=== PATIENT | female | born 1985 | race Caucasian/White ===

== ENCOUNTER 2016-12-26 11:18 | Observation (INO) | payer SELFPAY ==
[2016-12-26] VITALS (9 sets, daily range): BP systolic 84–118; BP diastolic 49–74; PULSE 72–91; RESP 14–18; TEMP 97.9–98.7; O2SAT 96–100
[~2016-12-26] VITALS: Ht 172.7 cm; Wt 65.0 kg
[~2016-12-26 11:18] MED LIST: PROM25TA5 PO; ZOFR4TAB3 SL
--- NOTE | 2016-12-26 11:32 | PD ---
Physical Exam Time Seen by Provider: 11:27 Narrative Patient presents to the emergency department for evaluation of vaginal bleeding and cramping for 2 weeks. LMP 5 months ago. Positive test 2 months ago. States she was approximately 8 weeks when the bleeding started. Going through 5-6 feminine pads per day. States she has had 2-3 syncopal episodes. VSS. Awaiting bed placement. Data Data Last Documented VS Vital Signs Date Time Temp Pulse Resp B/P Pulse Ox O2 Delivery O2 Flow Rate FiO2 12/26/16 11:20 98.7 91 16 118/56 100 Room Air MDM Supervised Visit with CARIDAD: Zulma Cruz Dec 26, 2016 11:31
[2016-12-26] MEDS ORDERED: METH40TA PO (11:41)
[2016-12-26] MEDS ORDERED: PROPOFOL 200 MG/20 ML AMP IV ONE (12:00)
[2016-12-26] MEDS ORDERED: LACTATED RINGER'S 1000 ML INJ 1,000 ML IV ONE (12:00)
[2016-12-26] MEDS ORDERED: SODIUM CHLOR 0.9% 1000 ML INJ 1,000 ML IV ONE (12:07)
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
[2016-12-26] MEDS ORDERED: SODIUM CHLORIDE 0.9% FLUSH 10 ML FLUSH IVF PRN (12:15)
[2016-12-26] MEDS ORDERED: ONDANSETRON HCL 4 MG/2 ML VIAL IVP ONE (12:15)
[2016-12-26 13:05] LABS: AUTOMATED NEUTROPHIL # 4.5 TH/MM3 (1.8-7.7); BASOPHIL % 0.4 % (0.0-2.0); EOSINOPHIL # 0.2 TH/MM3 (0-0.4); EOSINOPHIL % 2.8 % (0.0-4.0); HEMATOCRIT 37.6 % (35.0-46.0); HEMO FLAGS DIFF FINAL; LYMPH % 24.7 % (9.0-44.0); LYMPHOCYTE # 1.7 TH/MM3 (1.0-4.8); MEAN CELL VOLUME 84.5 FL (80.0-100.0); MEAN CORPUSCULAR HGB CONC 33.1 % (32.0-36.0); MONO % 5.8 % (0.0-8.0); NEUT % 66.3 % (16.0-70.0); PLATELET COUNT 251 TH/MM3 (150-450); RED BLOOD COUNT 4.45 MIL/MM3 (4.00-5.30); RED CELL DISTRIBUTION WIDTH 13.8 % (11.6-17.2); WHITE BLOOD COUNT 6.8 TH/MM3 (4.0-11.0)
[2016-12-26 13:08] LABS: BLOOD, URINE MOD (NEG); COMMENT (UR) CULT NOT INDICATED; CULTURE IF INDICATED CULT NOT INDICATED; GLUCOSE,URINE NEG (NEG); KETONE, URINE NEG (NEG); MUCUS URINE MANY /lpf (OCC); NITRITE,URINE NEG (NEG); SQUAMOUS EPITHELIAL CELL URINE 11 /hpf (0-5); URINE COLOR YELLOW (YELLW/STRAW)
[2016-12-26 13:19] LABS: MAGNESIUM 2.2 MG/DL (1.5-2.5); POTASSIUM 3.8 MEQ/L (3.5-5.1)
[2016-12-26 14:14] LABS: AMPHETAMINE, URINE POS (NEG); BARBITURATES, URINE NEG (NEG); COCAINE, URINE NEG (NEG)
--- NOTE | 2016-12-26 16:09 | RADRPT ---
EXAM DATE/TIME: 12/26/2016 14:50 [facility] COMPARISON: No previous studies available for comparison. INDICATIONS : Pelvic pain and vaginal bleeding following spontaneous . LAB(S): Beta-hC MEDICAL HISTORY : Pelvic pain. Vaginal bleeding. Previous ectopic . SURGICAL HISTORY : None. ENCOUNTER: Initial ACUITY: 2 weeks PAIN SCORE: 9/10 LOCATION: Bilateral pelvis MEASUREMENTS: UTERUS: 8.7 x 5.4 x 6.2 cm ENDOMETRIAL STRIPE: 15 mm RIGHT OVARY: 3.5 x 1.2 x 2.5 cm LEFT OVARY: 4.0 x 1.8 x 2.2 cm FINDINGS: UTERUS: Uterus is retroverted and contains a roughly ovoid shaped fluid collection in the endometrial cavity measuring 2.1 x 2.7 x 2.4 cm. There are a few internal echoes. No gestational sac is visualized. Ther e is a hypoechoic anechoic structure in the lower uterine segment measuring up to 2.2 cm. No concerni ng uterine mass is visualized. RIGHT OVARY: Ovary contains no mass or significant cystic lesion. There is a small echogenic area measuring 6 mm. LEFT OVARY: Ovary contains no mass or significant cystic lesion. There is a small echogenic area measuring 4 mm. MISCELLANEOUS: No free fluid. CONCLUSION: Irregular shaped fluid collection within the endometrial cavity that does not clearly represent a nor mal gestational sac and no embryo or yolk sac is identified. There is also a complex fluid collection in the lower uterine segment. These findings indicate of unknown location. Based on the cl inical history the patient may have already had loss. Suggest followup imaging and followup beta-hCG values to assess for change. Aman Renee MD on December 26, 2016 at 16:03 Board Certified Radiologist. This report was verified electronically.
--- NOTE | 2016-12-26 16:47 | PD ---
Data Data Last Documented VS Vital Signs Date Time Temp Pulse Resp B/P Pulse Ox O2 Delivery O2 Flow Rate FiO2 12/26/16 15:45 74 18 99/74 97 12/26/16 13:22 Room Air 12/26/16 11:20 98.7 Orders Urinalysis - C+S If Indicated (12/26/16 12:06) Ed Urine Pregnancytest Poc (12/26/16 12:06) Electrocardiogram (12/26/16 12:07) Basic Metabolic Panel (Bmp) (12/26/16 12:07) Complete Blood Count With Diff (12/26/16 12:07) Magnesium (Mg) (12/26/16 12:07) Ecg Monitoring (12/26/16 12:07) Iv Access Insert/Monitor (12/26/16 12:07) Oximetry (12/26/16 12:07) Ondansetron Inj (Zofran Inj) (12/26/16 12:15) Sodium Chloride 0.9% Flush (Ns Flush) (12/26/16 12:15) Sodium Chlor 0.9% 1000 Ml Inj (Ns 1000 M (12/26/16 12:07) Beta Hcg (Quant/Titer) (12/26/16 12:07) Type And Screen (12/26/16 12:07) Orthostatic Vital Signs (12/26/16 12:12) Drug Screen, Random Urine (12/26/16 12:13) Us Pelvis (Ques Pr/Ect)W Trans (12/26/16 ) Labs Laboratory Tests Test 12/26/16 12/26/16 12:34 12:39 Urine Color YELLOW Urine Turbidity HAZY Urine pH 6.0 Urine Specific [place] 1.031 Urine Protein TRACE mg/dL Urine Glucose (UA) NEG mg/dL Urine Ketones NEG mg/dL Urine Occult Blood MOD Urine Nitrite NEG Urine Bilirubin NEG Urine Urobilinogen LESS THAN 2.0 MG/DL Urine Leukocyte Esterase SMALL Urine RBC 3 /hpf Urine WBC 5 /hpf Urine Squamous Epithelial 11 /hpf Cells Urine Mucus MANY /lpf Microscopic Urinalysis Comment CULT NOT INDICATED Urine Opiates Screen POS Urine Barbiturates Screen NEG Urine Amphetamines Screen POS Urine Benzodiazepines Screen POS Urine Cocaine Screen NEG Urine Cannabinoids Screen POS White Blood Count 6.8 TH/MM3 Red Blood Count 4.45 MIL/MM3 Hemoglobin 12.4 GM/DL Hematocrit 37.6 % Mean Corpuscular Volume 84.5 FL Mean Corpuscular Hemoglobin 28.0 PG Mean Corpuscular Hemoglobin 33.1 % Concent Red Cell Distribution Width 13.8 % Platelet Count 251 TH/MM3 Mean Platelet Volume 7.9 FL Neutrophils (%) (Auto) 66.3 % Lymphocytes (%) (Auto) 24.7 % Monocytes (%) (Auto) 5.8 % Eosinophils (%) (Auto) 2.8 % Basophils (%) (Auto) 0.4 % Neutrophils # (Auto) 4.5 TH/MM3 Lymphocytes # (Auto) 1.7 TH/MM3 Monocytes # (Auto) 0.4 TH/MM3 Eosinophils # (Auto) 0.2 TH/MM3 Basophils # (Auto) 0.0 TH/MM3 CBC Comment DIFF FINAL Differential Comment Sodium Level 142 MEQ/L Potassium Level 3.8 MEQ/L Chloride Level 109 MEQ/L Carbon Dioxide Level 26.0 MEQ/L Anion Gap 7 MEQ/L Blood Urea Nitrogen 6 MG/DL Creatinine 0.62 MG/DL Estimat Glomerular Filtration 111 ML/MIN Rate Random Glucose 94 MG/DL Calcium Level 8.6 MG/DL Magnesium Level 2.2 MG/DL Human Chorionic Gonadotropin, 367 MIU/ML Quant Blood Type O POSITIVE Antibody Screen NEGATIVE Blood Bank Comment MDM Supervised Visit with CARIDAD: Yes Narrative Course The history, exam, and medical decision-making in the associated midlevel provider note were completed with my assistance. I reviewed and agree with the findings presented. I attest that I had a [id number] encounter with the patient on the same day, and personally performed and documented my assessment and findings in the medical record. *My assessment and Findings: This is a 31-year-old female who presents to the emergency department with vaginal bleeding in the setting of early . HCG is 300. Ultrasound demonstrates retained products. Patient likely has an incomplete miscarriage. We Spoke to SENIOR ACCOUNTING CLERK who will consult on the patient and likely do a D&C. Beulah Arthur MD Dec 26, 2016 16:46
--- NOTE | 2016-12-26 18:21 | HHI.HP ---
HPI Chief Complaint Bleeding and cramping Date Seen: Dec 26, 2016 Travel History International Travel<30 Days: No Contact w/Intl Traveler<30Days: No Known Affected Area: No History of Present Illness HPI The patient is a 31-year-old white female A2 in early with increased pain and bleeding. Patient was seen by [facility] old campus in November was diagnosed with a nonviable until she was 4 weeks along and return for another quantitative and possibly a D&C she is return to them in other places each time getting around and told to come back and recheck things and now the pain is gotten worse the bleeding as well. Patient is on methadone her only medications a history of drug use Para: 3 : 6 : 1 History Obstetric History Obstetric History 3 vaginal deliveries 1 and 1 ectopic that needed a laparoscopy Past Surgical History Narrative Surgical A D&C and an history laparoscopy for ectopic Family History Family History: Negative Social History Alcohol Use: Yes Tobacco Use: Yes Substance Abuse: Yes Allergies-Medications (Allergen,Severity, Reaction): Coded Allergies: No Known Allergies (Unverified , 12/26/16) Home Meds Reported Medications Methadone 40 Mg Tab70 Mg PO DAILY Ref 0 12/26/16 Review of Systems General / Constitutional: No: Fever, Weight Gain, Chills, Other Eyes: No: Diploplia, Blurred Vision, Visual changes, Pain, Photophobia HENT: No: Headaches, Vertigo, Lightheadedness Cardiovascular: No: Irregular Rhythm, Chest Pain or Discomfort, Palpitations, Tachycardia, Syncope, Varicosities, Edema, Cyanosis Respiratory: No: Cough, Short of Breath, Other Gastrointestinal: Abdominal Pain, No: Nausea, Vomiting, Diarrhea Genitourinary: Vaginal Bleeding, No: Decreased Urinary Output, Oliguria Musculoskeletal: No: Limited ROM, Weakness, Cramping, Edema, Pain Skin: No Rash, No Itching, No Dryness, No Lumps, No Change in Pigmentation, No Change in Nails, No Alopecia, No Lesions Neurologic: No: Weakness, Dizziness, Syncope, Focal Abnormalities, Coordination Problem, Headache, Slurred Speech, Seizures Psychiatric: No: Depression, Suicidal Ideations, Homicidal Ideation Endocrine: No: Heat Intolerance, Cold Intolerance, Polydipsia, Polyuria, Other Physical Exam Vital Signs Date Time Temp Pulse Resp B/P Pulse Ox O2 Delivery O2 Flow Rate FiO2 12/26/16 15:45 74 18 99/74 97 12/26/16 13:22 72 18 99/64 97 Room Air 12/26/16 12:38 70 16 96/62 12/26/16 12:36 61 18 99/58 12/26/16 12:35 59 18 99/53 12/26/16 12:35 96 Room Air 12/26/16 11:20 98.7 91 16 118/56 100 Room Air Narrative GENERAL: Well-nourished, well-developed patient. SKIN: Warm and dry. HEAD: Normocephalic and atraumatic. EYES: No scleral icterus. No injection or drainage. ENT: No nasal drainage noted. Mucous membranes pink. Airway patent. NECK: Supple, trachea midline. No JVD. CARDIOVASCULAR: Regular rate and rhythm without murmurs, gallops, or rubs. RESPIRATORY: Breath sounds equal bilaterally. No accessory muscle use. BREASTS: Bilateral exam showed no masses , no retractions, no nipple discharge. ABDOMEN/GI: Abdomen soft, -tender, bowel sounds present, no rebound, no guarding GENITOURINARY: External Genitalia: intact and normal in appearance vagina with small amount of blood Cervix: [Closed-] Uterus is retroflexed and slightly enlarged the cervix is up at 12:00 and is 1-2+ tender No adnexal masses or pain EXTREMITIES: No cyanosis or edema. BACK: Nontender without obvious deformity. No CVA tenderness. NEUROLOGICAL: Awake and alert. Motor and sensory grossly within normal limits. Five out of 5 muscle strength in all muscle groups. Normal speech. Data Data Orders Urinalysis - C+S If Indicated (12/26/16 12:06) Ed Urine Pregnancytest Poc (12/26/16 12:06) Electrocardiogram (12/26/16 12:07) Basic Metabolic Panel (Bmp) (12/26/16 12:07) Complete Blood Count With Diff (12/26/16 12:07) Magnesium (Mg) (12/26/16 12:07) Ecg Monitoring (12/26/16 12:07) Iv Access Insert/Monitor (12/26/16 12:07) Oximetry (12/26/16 12:07) Ondansetron Inj (Zofran Inj) (12/26/16 12:15) Sodium Chloride 0.9% Flush (Ns Flush) (12/26/16 12:15) Sodium Chlor 0.9% 1000 Ml Inj (Ns 1000 M (12/26/16 12:07) Beta Hcg (Quant/Titer) (12/26/16 12:07) Type And Screen (12/26/16 12:07) Orthostatic Vital Signs (12/26/16 12:12) Drug Screen, Random Urine (12/26/16 12:13) Us Pelvis (Ques Pr/Ect)W Trans (12/26/16 ) Admit Order (Ed Use Only) (12/26/16 18:02) Labs Laboratory Tests Test 12/26/16 12/26/16 12:34 12:39 Urine Color YELLOW Urine Turbidity HAZY Urine pH 6.0 Urine Specific [place] 1.031 Urine Protein TRACE Urine Glucose (UA) NEG Urine Ketones NEG Urine Occult Blood MOD Urine Nitrite NEG Urine Bilirubin NEG Urine Urobilinogen LESS THAN 2.0 Urine Leukocyte Esterase SMALL Urine RBC 3 Urine WBC 5 Urine Squamous Epithelial 11 Cells Urine Mucus MANY Microscopic Urinalysis Comment CULT NOT INDICATED Urine Opiates Screen POS Urine Barbiturates Screen NEG Urine Amphetamines Screen POS Urine Benzodiazepines Screen POS Urine Cocaine Screen NEG Urine Cannabinoids Screen POS White Blood Count 6.8 Red Blood Count 4.45 Hemoglobin 12.4 Hematocrit 37.6 Mean Corpuscular Volume 84.5 Mean Corpuscular Hemoglobin 28.0 Mean Corpuscular Hemoglobin 33.1 Concent Red Cell Distribution Width 13.8 Platelet Count 251 Mean Platelet Volume 7.9 Neutrophils (%) (Auto) 66.3 Lymphocytes (%) (Auto) 24.7 Monocytes (%) (Auto) 5.8 Eosinophils (%) (Auto) 2.8 Basophils (%) (Auto) 0.4 Neutrophils # (Auto) 4.5 Lymphocytes # (Auto) 1.7 Monocytes # (Auto) 0.4 Eosinophils # (Auto) 0.2 Basophils # (Auto) 0.0 CBC Comment DIFF FINAL Differential Comment Sodium Level 142 Potassium Level 3.8 Chloride Level 109 Carbon Dioxide Level 26.0 Anion Gap 7 Blood Urea Nitrogen 6 Creatinine 0.62 Estimat Glomerular Filtration 111 Rate Random Glucose 94 Calcium Level 8.6 Magnesium Level 2.2 Human Chorionic Gonadotropin, 367 Quant Blood Type O POSITIVE Antibody Screen NEGATIVE Blood Bank Comment Assessment/Plan Assessment and Plan Patient is a 31-year-old white female A2 with pain and bleeding in the first trimester. Apparently she's been for the last 4 weeks trying to get and: Adequate would do a D&C year to treat her more completely she's had trouble with that. Today she is here in the emergency room the ultrasound done today looks to be a blighted ovum , an empty sac , her quantitative hCG 367, remaining lab within normal limits a urine positive for multiple drugs. Patient 's bleeding and amount pain she's having and the fact that this been going on for almost 5 weeks it's best that and I wanted a D&C to stop the process and terminate her problem. Dr. Dueñas's compensation and benefits administrator for MG[employer] CONSULTANT and I will call her and let her know. Robert Valverde II, MD Dec 26, 2016 18:21
[2016-12-26] MEDS ORDERED: MORPHINE SULFATE 4 MG/ML INJ IV PUSH ONE (18:30)
[2016-12-26] MEDS ORDERED: DEXTROSE 5%-LACTATED RING INJ 1,000 ML IV SCH (18:30)
[2016-12-26] MEDS ORDERED: LORazepam 2 MG/ML VIAL IV PUSH ONE (18:30)
[2016-12-26] MEDS ORDERED: ceFAZolin 2 GM PREMIX 50 ML ONE (21:05)
[2016-12-26] MEDS ORDERED: LACTATED RINGER'S 1000 ML INJ 1,000 ML IV SCH (21:29)
[2016-12-26] MEDS ORDERED: oxyCODONE/ACETAMINOPHEN 10 MG/325 MG TAB PO PRN (21:30)
[2016-12-26] MEDS ORDERED: ONDANSETRON HCL 4 MG/2 ML VIAL IV PUSH PRN (21:30)
[2016-12-26] MEDS ORDERED: diphenhydrAMINE HCL 25 MG CAP PO PRN (21:30)
[2016-12-26] MEDS ORDERED: IBUPROFEN 600 MG TAB PO PRN (21:30)
[2016-12-26] MEDS ORDERED: SODIUM CHLORIDE 0.9% FLUSH 10 ML FLUSH IV FLUSH PRN (21:30)
[2016-12-26] MEDS ORDERED: HYDROmorphone HCL PF 2 MG/ML VIAL IV PRN (21:30)
[2016-12-26] MEDS ORDERED: KETOROLAC TROMETHAMINE 30 MG/ML (IVP) VIAL IV PUSH PRN (21:30)
--- NOTE | 2016-12-26 21:34 | HHI.DCPOC ---
Discharge Care Plan Your Health Problems Are: Pelvic pain Report Symptoms to Your Doctor -Temperate above 100.5 degrees -Redness, of incision or excessive or foul smelling drainage -Unusual pain or calf pain -Increased vaginal bleeding -Painful or difficulty urinating -Feelings of extreme sadness or anxiety after 2 weeks Goals to Promote Your Health * To prevent worsening of your condition and complications * To maintain your health at the optimal level Directions to Meet Your Goals Take your medications as prescribed Follow your dietary instruction Follow activity as directed Ensure plenty of rest for recovery Drink fluids for hydration Keep your appointments as scheduled Take your immunizations and boosters as scheduled If your symptoms worsen call your PCP, if no PCP go to Urgent Care Center or Emergency Room Smoking is Dangerous to Your Health. Avoid second hand smoke Call the 24-hour crisis hotline for domestic abuse at Kymberly Dueñas MD Dec 26, 2016 21:34
[2016-12-26] MEDS ORDERED: DO NOT ADM ANY ANTICOAGULANT DRUGS PRN (22:00)
[2016-12-27] MEDS ORDERED: SODIUM CHLORIDE 0.9% FLUSH 10 ML FLUSH IV FLUSH SCH (09:00)
--- NOTE | 2016-12-27 17:32 | EKG ---
Date Performed: 12/26/2016 Time Performed: 12:25:21 PTAGE: 31 years EKG: Sinus rhythm WITH SINUS ARRHYTHMIA NORMAL ECG NO PREVIOUS TRACING DOCTOR: Pablo Stevens Interpretating Date/Time 12/27/2016 17:29:08
--- NOTE | 2016-12-28 13:38 | MP ---
cc: SABINA DUEÑAS DATE OF SURGERY 12/26/2016 PREOPERATIVE DIAGNOSIS Incomplete POSTOPERATIVE DIAGNOSIS Incomplete PROCEDURE Examination under anesthesia, suction dilatation and curettage. SURGEON Dr. Dueñas ANESTHESIA General, Dr. Vences ESTIMATED BLOOD LOSS 75 cc URINE OUTPUT About 75 cc on straight cath prior to procedure. FINDINGS Uterus was approximately six to eight weeks in size. No adnexal masses were palpable. PROCEDURE The patient was taken to the operating room where general anesthesia was found to be adequate. She was then prepped and draped in the normal sterile fashion in the dorsal lithotomy position. The urinary bladder was emptied of urine using sterile technique. A weighted speculum was placed in vagina. A single-tooth tenaculum applied to the anterior lip of cervix. The cervix was gently dilated with Patrick dilators to accommodate a #8 suction curette. This was then advanced into the fundus of the uterus, suction was applied. The curette was rotated. A moderate amount of products of conception were evacuated. A sharp curettage was then performed gently until a gritty texture was noted. Hemostasis was assured. All the instruments were removed from the vagina. The sponge, lap, needle and instrument counts were correct. The patient was awakened from anesthesia and transferred to the recovery room in stable condition. Pathology was products of conception. MD MARGA Monroy/DARCIE /9:40 PM /1:30 PM
== END 2016-12-26 22:35 | disposition home or self-care (01) ==
LOC: NEPD 11:18 → NEDA 18:04 → HPAC 20:42
PROVIDERS: ADMIT Obstetrics & Gynecology; ATTEND Obstetrics & Gynecology
DX: O03.4 Incomplete spontaneous abortion without complication (principal); R10.2 Pelvic and perineal pain; R42 Dizziness and giddiness; M54.5 Low back pain; F17.200 Nicotine dependence, unspecified, uncomplicated; F12.90 Cannabis use, unspecified, uncomplicated; R79.89 Other specified abnormal findings of blood chemistry
CPT/HCPCS: 01965; 59812; 76700; 76817; 80048; 80307; 81001; 83735; 84702; 84703; 85025; 86850; 86900; 86901; 88305; 93005; 96361; 96374; 99285; G0378; J0690; J1885; J2060; J2270; J2405; J3010; J7030; J7120; J7121